=== PATIENT | female | born 1940 | race Caucasian/White ===

== ENCOUNTER → 2018-03-15 | Outpatient (CLI) | payer MEDICARE ==
[~2018-03-15] MED LIST: ASPI81TA15 PO; ATOR40TA69 PO; CALC-515 PO; CEPH250C37 PO; CHOL400T22 PO; HCTZ25 FT; LEVO25TA56 PO; LOR5/325 PO; LOVA20TA99 PO; METO25TA93 PO; MULT1TAB PO; OMEG-26 PO; TRAM-627 PO; VIT1CAPS39 PO
[2018-03-15 09:23] LABS: PLATELET COUNT, AUTOMATED 381 K/uL (150-450)
[2018-03-15 09:41] LABS: LDL CHOLESTEROL 73 mg/dl
--- NOTE | 2018-03-15 10:49 | RADIOLOGY IMAGING REPORT ---
FACILITY: [facility] PATIENT NAME: Anne Angelo : 1940 MR: [id number] V: [id number] EXAM DATE: ORDERING PHYSICIAN: JASMIN ESTEVEZ TECHNOLOGIST: Location: [facility] Patient: Anne Angelo : 1940 Visit/Account:[id number] Date of Sevice: 03/15/2018 EXAMINATION: Aorta ultrasound with duplex Doppler evaluation HISTORY: History of abdominal aortic aneurysm COMPARISON: June 29, 2017 FINDINGS: Suprarenal abdominal aorta: 2.7 x 2.6 cm AP and transverse dimensions Superior infrarenal abdominal aorta: 2.7 x 2.3 cm AP and transverse dimensions Mid infrarenal abdominal aorta: 3.1 x 3.4 cm AP and transverse dimensions The central lumen measures 2.1 x 2.5 cm with surrounding mural thrombus Inferior infrarenal abdominal aorta: 1.6 x 1.7 cm AP and transverse dimensions Proximal common iliac artery diameter: Left 5.6 mm; right six mm Aorta wall: Atherosclerotic changes seen throughout the abdominal aorta Aorta and proximal common iliac artery are patent by duplex Doppler ultrasound. IMPRESSION: Mid infrarenal abdominal aortic aneurysm measures 3.1 x 3.4 cm including the mural thrombus. Previou sly measured 3.5 x 3.3 cm. Report Dictated By: Anne García MD at 03/15/2018 10:27 AM Report E-Signed By: Anne García MD at 03/15/2018 10:44 AM WSN:[email or web address]
--- NOTE | 2018-03-16 10:42 | RADIOLOGY IMAGING REPORT ---
FACILITY: [facility] PATIENT NAME: ANNE CHEN : [id number] MR: [id number] V: [id number] EXAM DATE: ORDERING PHYSICIAN: JASMIN ESTEVEZ TECHNOLOGIST: Deavnte Newell PROCEDURE:US LEFT BREAST COMPARISON:None. INDICATIONS:PALPABLE LUMP APPROXIMATE 3 O'CLOCK POSITION LEFT BREAST. FINDINGS: The Left breast was imaged in the 1-4 o'clock position reveal no sonographic abnormality other than several minimally prominent ducts in the Left retroareolar region. Today's mammogram likewise revealed no abnormality therefore clinical follow-up recommend. DIAGNOSTIC CATEGORY 2--BENIGN FINDING. RECOMMENDATIONS: ROUTINE MAMMOGRAM AND CLINICAL EVALUATION. CLINICAL EVALUATION. IMPRESSION: BIRADS 2: Benign finding No mammographic or sonographic abnormality identified to account for patient's palpable findings in the Left breast therefore clinical follow-up recommended. Dictated by: Anne García M.D. on 03/15/2018 at 11:14 Transcribed by: LAY on 03/15/2018 at 13:08 Approved by: Anne García M.D. on 03/16/2018 at 10:40 [facility]
--- NOTE | 2018-03-16 10:42 | RADIOLOGY IMAGING REPORT ---
FACILITY: [facility] PATIENT NAME: ANNE CHEN : [id number] MR: [id number] V: [id number] EXAM DATE: ORDERING PHYSICIAN: JASMIN ESTEVEZ TECHNOLOGIST: Twyla Sommers PROCEDURE:BILATERAL DIAGNOSTIC DIGITAL MAMMOGRAM WITH CAD ASSISTED INTERPRETATION & 3D TOMOSYNTHESIS COMPARISON:Prior mammograms 04/10/13. INDICATIONS:LEFT BREAST LUMP UPPER OUTER QUADRANT FINDINGS: Small amount of fibroglandular tissue is seen throughout the breasts. The parenchymal pattern has remained stable allowing for difference in mammographic technique & patient positioning. There is no evidence of malignant appearing mass, malignant appearing calcifications or other secondary sign of malignancy in either breast. Today's Left breast Ultrasound likewise revealed no sonographic correlate therefore clinical follow-up recommended for patient's palpable findings DIAGNOSTIC CATEGORY 2--BENIGN FINDING. RECOMMENDATIONS: ROUTINE MAMMOGRAM AND CLINICAL EVALUATION. CLINICAL EVALUATION. IMPRESSION: BIRADS 2: Benign finding No mammographic or sonographic abnormality identified to account for patient's palpable findings in the Left breast therefore clinical follow-up recommended. Dictated by: Anne García M.D. on 03/15/2018 at 11:01 Transcribed by: LAY on 03/15/2018 at 11:54 Approved by: Anne García M.D. on 03/16/2018 at 10:40 [facility]
== END ==
LOC: MAMO 00:56
PROVIDERS: ATTEND Nurse Practitioner Family
DX: N64.4 Mastodynia (principal); N60.19 Diffuse cystic mastopathy of unspecified breast; I71.9 Aortic aneurysm of unspecified site, without rupture; I10 Essential (primary) hypertension; D51.0 Vitamin B12 deficiency anemia due to intrinsic factor deficiency; E55.9 Vitamin D deficiency, unspecified; E78.00 Pure hypercholesterolemia, unspecified; R53.81 Other malaise
CPT/HCPCS: 36415; 77062; 77066; 82040; 82247; 82306; 82310; 82374; 82435; 82465; 82565; 82607; 82947; 83718; 84075; 84132; 84155; 84295; 84443; 84450; 84460; 84478; 84520; 85025; 93978

== ENCOUNTER → 2018-08-01 | Outpatient (CLI) | payer MEDICARE ==
[2018-08-01 13:57] LABS: LDL CHOLESTEROL 76 mg/dl
== END ==
LOC: LAB 13:15
PROVIDERS: ATTEND Nurse Practitioner Family
DX: E83.52 Hypercalcemia (principal); E78.00 Pure hypercholesterolemia, unspecified; E03.9 Hypothyroidism, unspecified
CPT/HCPCS: 36415; 82040; 82247; 82306; 82310; 82374; 82435; 82465; 82565; 82947; 83718; 84075; 84132; 84155; 84295; 84443; 84450; 84460; 84478; 84520

== ENCOUNTER → 2018-09-13 | Outpatient (CLI) | payer MEDICARE ==
--- NOTE | 2018-09-13 11:18 | RADIOLOGY IMAGING REPORT ---
FACILITY: [facility] [place] PATIENT NAME: Anne Angelo : 1940 MR: [id number] V: [id number] EXAM DATE: ORDERING PHYSICIAN: JASMIN ESTEVEZ TECHNOLOGIST: Location: [facility] Patient: Anne Angelo : 1940 Visit/Account:[id number] Date of Sevice: 09/13/2018 DEXA Scan Clinical history: Screening. Comparison: September 01, 2010. FOREARM: The bone mineral density (BMD) measured in the ULTRADISTAL right forearm, where trabecular bone predo minates, correlates with a Z-score of -0.4 and a T-score of -3.1 which is osteoporotic as defined by the World Health Organization. The corresponding risk of fracture in the distal forearm is significa ntly increased compared with a young adult reference population. The bone mineral density (BMD) composite wrist with a T-score of -1.4 which is -4.1 as defined by the World Health Organization. The corresponding risk of fracture in the midshaft of the forearm is oste oporotic compared with a young adult reference population. . HIP: Bone mineral density (BMD) measured in the left total hip region correlates with a Z-score of -0.4 an d a T-score of -2.7 . The T score of the femoral neck is -2.3. The lower of the two T-scores is o steoporotic as defined by the World Health Organization. The corresponding risk of fracture in the h ip is significantly increased compared with a young adult reference population. This value has decr eased by 16.2 % since the prior study. More than 5% change is considered significant. Bone mineral density (BMD) measured in the left Femoral Neck region measures 0.71 g/cm?. IMPRESSION: Right Forearm: Osteoporotic. Left Hip osteoporotic FRAX? WHO Fracture Risk Assessment Tool link: <http://www.shef.ac.uk/FRAX/tool.jsp?locationValue=9> PLEASE NOTE: 1) The World Health Organization defines low BMD as follows: T-score Normal > -1 Osteopenia < -1 and > -2.5 Osteoporosis < -2.5 without fractures Established osteoporosis < -2.5 with fractures 2) In general, you may wish to consider: Diagnosis Treatment Follow-up DEXA Normal BMD Prevention 2-3 years Osteopenia Prevention/therapy 1-2 years Osteoporosis Therapy Yearly 3) Fracture risk estimated from the T-score is more accurate for vertebral fractures (often spontane ous) than for hip fractures. Report Dictated By: Torey Tran MD at 09/13/2018 11:04 AM Report E-Signed By: Torey Tran MD at 09/13/2018 11:13 AM WSN:[email or web address]
--- NOTE | 2018-09-13 14:04 | RADIOLOGY IMAGING REPORT ---
FACILITY: [facility] [place] PATIENT NAME: Anne Angelo : 1940 MR: [id number] V: [id number] EXAM DATE: ORDERING PHYSICIAN: JASMIN ESTEVEZ TECHNOLOGIST: Location: [facility] [place] Patient: Anne Angelo : 1940 Visit/Account:[id number] Date of Sevice: 09/13/2018 AORTA HISTORY: Follow-up aortic aneurysm Comparison Aortic ultrasound dated 03/15/[address] scan dated 08/31/2016 FINDINGS: Suprarenal aorta measurements 2.7 x 2.5 centimeters. Superior infrarenal aorta measures 2.6 x 2.6 centimeters. Mid infrarenal aorta measures 3.0 x 2.8 centimeters. Inferior infrarenal aorta measures 2.5 x 2.5 centimeters. On the prior study this was listed as 1.7 x 1.6. However, in reviewing the images I believe the difference in measurements is due to the fact it measured in slightly different spots. Right and left common iliac arteries measure 0.8 and 0.7 centimeters respectively. Aorta wall: Atherosclerotic plaque is visible in the aortic wall. Small amount of thrombus is seen a long the anterior wall. IVC is patent IMPRESSION: Fusiform infrarenal abdominal aortic aneurysm beginning 1.2 cm below the most inferior renal artery m easures 3 cm widest dimension and is stable. There is atherosclerosis in the aorta and iliac vessels . Report Dictated By: Torey Tran MD at 09/13/2018 11:55 AM Report E-Signed By: Torey Tran MD at 09/13/2018 1:59 PM WSN:[email or web address]
== END ==
LOC: US 01:02
PROVIDERS: ATTEND Nurse Practitioner Family
DX: I71.4 Abdominal aortic aneurysm, without rupture (principal); M81.0 Age-related osteoporosis without current pathological fracture
CPT/HCPCS: 77080; 93979

== ENCOUNTER 2019-03-03 11:21 | Emergency (ER) | payer MEDICARE ==
--- NOTE | 2019-03-03 11:27 | ER Report ---
History and Physical Time Seen By MD: 11:27 HPI/ROS CHIEF COMPLAINT: Blood in stools HISTORY OF PRESENT ILLNESS: This is an 78-year-old female presents to the emergency room for blood in stool. Patient states that at the end of December, she was in [place], have one episode of atrial fibrillation, was rushed to the hospital chemically converted into a sinus rhythm, no known history of a-fib. Was not placed on anticoagulation at that time. The live half the time in [facility] and half time in [place]. Upon returning to [place] last month after a-fib episode, she had an upper endoscopy for one or 2 episodes of bright red blood in her stool, no ulcerations identified, attributed the brief episodes of bright red stools to large quantities of ibuprofen being consumed on a daily basis for roughly a month. She also had femoral angioplasty this past month in [place], following the procedure she was placed on Plavix and aspirin. Everythin rosalba went well, no complications then returned [place] 2 days ago for the summer, at which time she began to show signs of dark red to black stools, she also notes that she's been straining more to have a bowel movement last couple of days. The became concerned, she also had some nausea today she thinks this is secondary to being nervous about the blood in the stool. She denies fevers or chills. No vomiting. No chest pain or shortness of breath. No abdominal pain however she states she does have a known abdominal aneurysm, which has remained unchanged. She was also concerned about her elevated blood pressure at home, she does however think this is stress related, she denies any other symptomology, no headaches or neurological changes. REVIEW OF SYSTEMS: Constitutional: No fever, no chills. Eyes: No discharge. ENT: No sore throat. Cardiovascular: No chest pain, no palpitations. Respiratory: No cough, no shortness of breath. Gastrointestinal: As above. Genitourinary: No hematuria. Musculoskeletal: No back pain. Skin: No rashes. Neurological: No headache. Allergies: Coded Allergies: No Known Drug Allergies (Unverified , 05/11/13) Home Meds Active Scripts Ferrous Sulfate (FERROUS SULFATE) 324 Mg Tablet., 324 MG PO QDAY for 14 Days, #14 TAB Prov:JT LEES DOUBLE ENDING MACHINE OPERATOR-BC 03/03/19 Reported Medications Pantoprazole Sodium (PANTOPRAZOLE SODIUM) 40 Mg Tablet.dr, 40 MG PO QDAY, TAB.SR 03/03/19 Amlodipine Besylate (AMLODIPINE BESYLATE) 5 Mg Tablet, 1 TAB PO QDAY, TAB 03/03/19 Vit C/Chase Ac/Lut/Copper/Znox (PRESERVISION LUTEIN SOFTGEL) 1 Each Capsule, 1 EACH PO BID, CAPSULE 10/12/13 Metoprolol Tartrate (METOPROLOL TARTRATE) 25 Mg Tablet, 0.5 TAB PO BID TAKE ONE TABLET BY MOUTH TWICE A DAY 10/12/13 Atorvastatin Calcium (ATORVASTATIN CALCIUM) 40 Mg Tablet, 1 TAB PO QDAY PRN for QHS, TAB TAKE ONE TABLET BY MOUTH ONCE A DAY AT BED TIME 10/12/13 Aspirin (ASPIRIN) 81 Mg Tablet.dr, 81 MG PO 06/28/12 Discontinued Reported Medications Calcium Carbonate (TUMS) 200 Mg Tab.chew, 200 MG PO BID, TAB.CHEW 10/12/13 Lovastatin (Lovastatin) 20 Mg Tablet, 20 MG PO 06/28/12 Multivit&Min/Iron Fm/Folic Acd (MONOCAPS TABLET) 1 Each Tablet, 1 EACH PO 06/28/12 [place]-3/Dha/Epa/Fish Oil (FISH OIL 1,000 MG SOFTGEL) 1 Each Capsule, 1 EACH PO 06/28/12 Levothyroxine Sodium (Levothyroxine Sodium) 25 Mcg Tablet, 25 MCG PO 06/28/12 Discontinued Scripts Cephalexin (KEFLEX) 250 Mg Capsule, 250 MG PO Q6H, #40 CAP TAKE ONE CAPSULE BY MOUTH EVERY SIX HOURS Prov:INO VALLEJO MD 10/12/13 Past Medical/Surgical History The patient has a past medical and surgical history of DVT, brief episode of atrial fibrillation, hypertension, blood in stools, C. difficile, arthritis, c hronic back pain, macular degeneration, hysterectomy, left rotator cuff repair. Reviewed Nurses Notes: Yes Hx Smoking: Yes Hx Substance Use Disorder: No Hx Alcohol Use: Yes (RARE) Constitutional Vital Sign - Last 24 Hours 03/03/19 03/03/19 03/03/19 03/03/19 11:25 11:26 11:30 11:51 Temp 98.3 Pulse 62 58 Resp 20 33 B/P (MAP) 182/82 182/82 (115) 178/79 (112) Pulse Ox 92 89 O2 Delivery Room Air 03/03/19 03/03/19 03/03/19 03/03/19 12:00 12:21 12:30 12:35 Pulse 55 50 Resp 12 11 B/P (MAP) 191/78 (115) 178/76 (110) Pulse Ox 92 03/03/19 03/03/19 03/03/19 03/03/19 13:11 13:30 13:35 13:40 Pulse 50 51 B/P (MAP) 165/69 (101) 172/80 (110) Pulse Ox 88 90 03/03/19 14:00 B/P (MAP) 156/73 (100) Physical Exam General Appearance: The patient is alert, has no immediate need for airway protection and no signs of toxicity. Eyes: Pupils equal and round no pallor or injection. ENT, Mouth: Mucous membranes are moist. Respiratory: There are no retractions, lungs are clear to auscultation. Cardiovascular: Regular rate and rhythm no murmurs, clicks or rubs. Gastrointestinal: Abdomen is soft and non tender, no masses, bowel sounds normal. No abdominal bruits. No pulsations. Neurological: Alert and oriented 4. Moving all activity. Following all commands. No focal neuro deficits. Skin: Warm and dry, no rashes. Musculoskeletal: Neck is supple non tender. Extremities are nontender, nonswollen and have full range of motion. DIFFERENTIAL DIAGNOSIS: After history and physical exam differential diagnosis was considered for abdominal aneurysm rupture, diverticulitis, diverticulosis, upper GI bleed, gastric ulcer. Medical Decision Making Data Points Result Diagram: 03/03/19 1205 03/03/19 1205 Laboratory Hematology Test 03/03/19 12:05 03/03/19 12:24 Red Blood Count 3.51 M/uL (4.17-5.56) Mean Corpuscular Volume 90.6 fL (80.0-96.0) Mean Corpuscular Hemoglobin 30.8 pg (26.0-33.0) Mean Corpuscular Hemoglobin Concent 34.0 g/dL (32.0-36.0) Red Cell Distribution Width 14.4 % (11.5-14.5) Mean Platelet Volume 6.1 fL (7.2-11.1) Neutrophils (%) (Auto) 72.2 % (39.4-72.5) Lymphocytes (%) (Auto) 16.6 % (17.6-49.6) Monocytes (%) (Auto) 8.6 % (4.1-12.4) Eosinophils (%) (Auto) 1.2 % (0.4-6.7) Basophils (%) (Auto) 1.4 % (0.3-1.4) Nucleated RBC Relative Count (auto) 0.0 /100WBC Neutrophils # (Auto) 3.9 K/uL (2.0-7.4) Lymphocytes # (Auto) 0.9 K/uL (1.3-3.6) Monocytes # (Auto) 0.5 K/uL (0.3-1.0) Eosinophils # (Auto) 0.1 K/uL (0.0-0.5) Basophils # (Auto) 0.1 K/uL (0.0-0.1) Nucleated RBC Absolute Count (auto) 0.00 K/uL Prothrombin Time 12.4 seconds (12.0-14.4) Prothromb Time International Ratio 0.93 Activated Partial Thromboplast Time 25 seconds (23-35) Sodium Level 141 mmol/L (137-145) Potassium Level 3.7 mmol/L (3.5-5.0) Chloride Level 108 mmol/L (98-107) Carbon Dioxide Level 24 mmol/L (22-31) Blood Urea Nitrogen 12 mg/dl (7-18) Creatinine 0.70 mg/dl (0.52-1.04) Glomerular Filtration Rate Calc > 60.0 Random Glucose 92 mg/dl (75-110) Calcium Level 9.5 mg/dl (8.4-10.2) Total Bilirubin 0.5 mg/dl (0.2-1.3) Aspartate Amino Transf (AST/SGOT) 24 U/L (0-35) Alanine Aminotransferase (ALT/SGPT) 24 U/L (0-56) Alkaline Phosphatase 79 U/L (0-126) Total Protein 7.3 g/dl (6.3-8.2) Albumin 4.2 g/dl (3.5-5.0) Stool Occult Blood (IFOB) Positive (NEGATIVE) Chemistry Test 03/03/19 12:05 03/03/19 12:24 White Blood Count 5.4 k/uL (4.5-11.0) Red Blood Count 3.51 M/uL (4.17-5.56) Hemoglobin 10.8 g/dL (12.0-16.0) Hematocrit 31.8 % (34.0-47.0) Mean Corpuscular Volume 90.6 fL (80.0-96.0) Mean Corpuscular Hemoglobin 30.8 pg (26.0-33.0) Mean Corpuscular Hemoglobin Concent 34.0 g/dL (32.0-36.0) Red Cell Distribution Width 14.4 % (11.5-14.5) Platelet Count 429 K/uL (150-450) Mean Platelet Volume 6.1 fL (7.2-11.1) Neutrophils (%) (Auto) 72.2 % (39.4-72.5) Lymphocytes (%) (Auto) 16.6 % (17.6-49.6) Monocytes (%) (Auto) 8.6 % (4.1-12.4) Eosinophils (%) (Auto) 1.2 % (0.4-6.7) Basophils (%) (Auto) 1.4 % (0.3-1.4) Nucleated RBC Relative Count (auto) 0.0 /100WBC Neutrophils # (Auto) 3.9 K/uL (2.0-7.4) Lymphocytes # (Auto) 0.9 K/uL (1.3-3.6) Monocytes # (Auto) 0.5 K/uL (0.3-1.0) Eosinophils # (Auto) 0.1 K/uL (0.0-0.5) Basophils # (Auto) 0.1 K/uL (0.0-0.1) Nucleated RBC Absolute Count (auto) 0.00 K/uL Prothrombin Time 12.4 seconds (12.0-14.4) Prothromb Time International Ratio 0.93 Activated Partial Thromboplast Time 25 seconds (23-35) Glomerular Filtration Rate Calc > 60.0 Calcium Level 9.5 mg/dl (8.4-10.2) Total Bilirubin 0.5 mg/dl (0.2-1.3) Aspartate Amino Transf (AST/SGOT) 24 U/L (0-35) Alanine Aminotransferase (ALT/SGPT) 24 U/L (0-56) Alkaline Phosphatase 79 U/L (0-126) Total Protein 7.3 g/dl (6.3-8.2) Albumin 4.2 g/dl (3.5-5.0) Stool Occult Blood (IFOB) Positive (NEGATIVE) Coagulation Test 03/03/19 12:05 Prothrombin Time 12.4 seconds Prothromb Time International Ratio 0.93 Activated Partial Thromboplast Time 25 seconds EKG/Imaging EKG Interpretation 12 lead EKG: Time of EKG 1155. Rhythm: Sinus bradycardia, ventricular rate 54 bpm. [place]: normal QRS: normal ST segments: No ST depression or elevation identified. No other EKGs for comparison. Imaging Location: [facility] Patient: Anne Angelo : 1940 Visit/Account:[id number] Date of Sevice: 03/03/2019 Computed tomograpy abdomen and pelvis with IV contrast Indication: Blood in stool. Atrial fibrillation. Comparison: 08/31/2016. Technique: Transaxial computed tomography images were obtained through the abdomen and pelvis following the injection of nonionic iodinated intravenous contrast. Reformatted coronal and sagittal images were also obtained. One of the following dose optimization techniques was utilized in the performance of this exam: Automated exposure control; adjustment of the mA and/or kV according to the patient's size; or use of an iterative reconstru ction technique. Specific details can be referenced in the facility's radiology CT exam operational policy. Contrast: 75 ml of Isovue-370 IV contrast. Findings: Lower lung hansen: Changes of interstitial lung disease and honeycombing are present within the lung bases. This appeared similarly on the prior exam. Small, incompletely evaluated nodular densities are seen within the right middle lobe anteriorly on the most upper images of this exam. There is metal streak artifact from interval lumbar fusion procedure with instrumentation which extends from L1 to S1 with bilateral iliac fixation. Liver: No focal parenchymal abnormality of the liver. Biliary: Gallbladder is partially contracted. Common duct appears mildly dilated within the pancreas and tapers distally near the ampulla. It measures 7 mm in greatest dimension. Correlate with liver function tests. No intrahepatic biliary dilatation. Pancreas: Normal appearance. Spleen: Normal appearance. Adrenal glands: Unremarkable. Kidneys / retroperitoneum: Large exophytic renal cysts are again seen. Smaller cortically based cysts are seen. No stones or hydronephrosis are identified. Bowel / peritoneum / mesenteries: No colonic wall thickening or pericolonic inflammation is identified. Numerous colonic diverticula are seen without evidence of diverticulitis. No evidence of small bowel dilatation to suggest obstruction or ileus. Lymph node assessment: Postoperative changes are seen within the left inguinal region. Mildly prominent nodes are suggested in this region. Correlate clinically. No enlarged pelvic, mesenteric or retroperitoneal nodes are seen. Pelvic structures: There has been prior hysterectomy. The bladder is very distended with urine. Correlate clinically. Vessels: Diffuse, extensive atherosclerotic calcifications seen throughout the abdominal aorta and its branch vessels. These extend into the iliac and femoral vessels. There is an infrarenal abdominal aortic aneurysm. Greatest transaxial dimensions measure 3.6 x 3.6 cm. On the prior, this measured 3.4 x 3.5 cm. Musculoskeletal / Body wall: Postoperative changes as reported above. No acute compression fractures seen. There is multilevel degenerative disc disease present most pronounced at T12-L1 and L2-L3. Anterior interbody bone graft is in place at L5-S1. There is a slight dextrocurvature centered in the mid lumbar spine. IMPRESSION: 1. No acute inflammatory process identified within the abdomen or the pelvis. No evidence of focal colitis or diverticulitis. 2. Marked urinary distention of the bladder. Clinical correlation is necessary. 3. Extensive/diffuse atherosclerosis with aneurysmal dilatation of the infra renal abdominal aorta. Greatest aneurysm dimensions measure slightly larger than the prior exam. Measurements as reported above. 4. Peripheral honeycombing and interstitial lung disease in the lung bases. Indeterminant and incompletely evaluated nodular densities seen within the right middle lobe on the most upper images. If indicated, consider nonemergent dedicated chest CT. 5. Mildly prominent common bile duct within the head of the pancreas which tapers distally. Correlate with liver function tests. 6. Large exophytic renal cysts. Report Dictated By: Devante Ornelas at 03/03/2019 1:26 PMReport E-Signed By: Devante Ornelas at 03/03/2019 1:42 PM WSN:[id number] Hitting on PATIENT NAME: Anne Angelo : 1940 MR: [id number] V: [id number] EXAM DATE: ORDERING PHYSICIAN: JT LEES TECHNOLOGIST: Location: [facility] Patient: Anne Angelo : 1940 Visit/Account:[id number] Date of Sevice: 03/03/2019 Examination: CHEST PA LAT Comparison: None. History: Blood in stool. Atrial fibrillation. Findings: Cardiac and hilar contour size is normal. Aortic atherosclerosis. Pulmonary hyperexpansion. Interstitial thickening with peripheral reticular markings most notably in the lower lungs is suggestive of fibrosis. No consolidation or nodule is otherwise identified. No pneumothorax, edema, or effusion. Lumbar fusion. No acute osseous normality. IMPRESSION: Chronic lung disease with no findings of acute cardiopulmonary disease. Report Dictated By: Daniel Stack MD at 03/03/2019 1:06 PM Report E-Signed By: Daniel Stack MD at 03/03/2019 1:08 PM WSN:[id number] ED Course/Re-evaluation Clinical Indication for ER IV: IV Access ED Course The patient was admitted to room. A history and physical obtained. Deyanira diagnoses were considered. An IV was started. A CBC, CMP, type and screen were obtained. Patient was given 80 mg loading dose of Protonix. Rectal exam did reveal dark stool on gloved finger, there is also small amount of stool burden in the rectal vault which was very firm. CBC showing RBCs 3.51, H&H 10.8 and 31.8, chemistry unremarkable, INR 0.93, positive Hemoccult stool. No acute findings on two-view chest x-ray. EKG showing sinus bradycardia. Chest x-ray showing no acute cardiopulmonary process.CT of the and pelvis showing no acute inflammatory process, no colitis or diverticulitis, no significant changes in the known aneurysm, similar nodular densities in the lungs. I did review the results with the patient and her . I also spoke with Dr. Hamilton the surgeon on-call, as the patient is not actively bleeding, stable vital signs, H&H stable, he recommended a follow-up this next week with the general surgeons for colonoscopy, patient was also encouraged to start ferrous sulfate with stool softeners. The patient, her and I discussed a low threshold for returning to the ER for reevaluation should she develop recurrent episodes of bleeding at which time she she will likely be admitted for observation. They will both agreeable with the plan of care, patient was pleased with the plan to discharge home. And no other questions or concerns at this time. Also noted she will continue with her aspirin and Plavix due to the recent angioplasty. 03/03/2019 12:26:04 pm Nonthrombosed hemorrhoids around the anus, overdose black stool around the rectum, on digital exam there is a firm stool in the rectal vault, black stool noted on gloved finger, specimen collected and sent to lab. 03/03/2019 2:10:03 pm I did speak with Dr. Hamilton the general surgeon quarter section ironer regarding the case, the patient is not actively bleeding at this time, he did recommend starting the patient on ferrous sulfate and a stool softener and follow up with Dr. Machado or Dr. Simmons for a colonoscopy this next week. Decision to Disposition Date: March 03, 2019 Decision to Disposition Time: 14:26 Depart Departure Latest Vital Signs Vital Signs Date Time Temp Pulse Resp B/P (MAP) Pulse Ox O2 Delivery O2 Flow Rate FiO2 03/03/19 14:00 156/73 (100) 03/03/19 13:40 51 90 03/03/19 12:35 11 03/03/19 11:25 98.3 Room Air Impression: Primary Impression: Upper GI bleed Condition: Improved Disposition: HOME OR SELF-CARE Referrals: SALENA SIMMONS 5 Days New Scripts Ferrous Sulfate (FERROUS SULFATE) 324 Mg Tablet. 324 MG PO QDAY for 14 Days, #14 TAB Prov: JT LEES DOUBLE ENDING MACHINE OPERATOR-BC 03/03/19 Patient Instructions: Colonoscopy (GEN), Gastrointestinal Bleeding (ED) Additional Instructions: Please contact Dr. Simmons first thing Tuesday morning to schedule an outpatient colonoscopy. As you were not actively bleeding at this time, blood pressures are ok and stable blood work we can send you home. Continue taking your current medications. In addition to the stool softeners you are taking, please try 1/2 cap of Miralax to help with stooling. You can also try some prune juice, this will help with stool transit. Please increase the amount of water you are taking this will help with stooling as well, this will be important as I am starting you on iron tablets, this can increase the chance for constipation. As we discussed, there is a low threshold for returning to the ED, for increased bleeding or anything else you find concerning. Get plenty of rest. Return to the ED for any other concerns or worsening symptoms. JT LEES DOUBLE ENDING MACHINE OPERATOR-BC March 03, 2019 11:27
[2019-03-03] MEDS ORDERED: AMLO-125 PO (11:39)
[2019-03-03] MEDS ORDERED: PANT40TA65 PO (11:39)
[2019-03-03 12:17] LABS: PLATELET COUNT, AUTOMATED 429 K/uL (150-450)
[2019-03-03] MEDS ORDERED: PANTOPRAZOLE SOD(*)40 MG VIAL 80 MG in NS(*) 0.9% 100 ML BAG 100 ML IVPB ONE (12:20)
--- NOTE | 2019-03-03 12:21 | EKG ---
FACILITY: [facility] [place] PATIENT NAME: MARIANNE CHEN : [id number] MR: [id number] V: [id number] EXAM DATE: ORDERING PHYSICIAN: JT LEES TECHNOLOGIST: TANI Test Reason : ABD PAIN Blood Pressure : / mmHG Vent. Rate : 054 BPM Atrial Rate : 054 BPM P-R Int : 118 ms QRS Dur : 084 ms QT Int : 446 ms P-R-T Axes : 065 026 047 degrees QTc Int : 422 ms Sinus bradycardia Otherwise normal ECG No previous ECGs available Confirmed by INO JOY ([id number]) on 03/03/2019 1:09:33 PM Referred By: FLORENCIA Confirmed By:INO JOY
[2019-03-03 12:23] LABS: INR 0.93
[2019-03-03] MEDS ORDERED: IOPAMIDOL 76% 150 ML INFUS BTL 150 ML ONE (12:47)
--- NOTE | 2019-03-03 13:13 | RADIOLOGY IMAGING REPORT ---
[place] [facility] [place] NAME: Anne Angelo : 1940 MR: [id number] V: [id number] EXAM DATE: ORDERING PHYSICIAN: JT LEES TECHNOLOGIST: Location: [facility] [place] Patient: Anne Angelo : 1940 Visit/Account:[id number] Date of Sevice: 03/03/2019 Examination: CHEST PA LAT Comparison: None. History: Blood in stool. Atrial fibrillation. Findings: Cardiac and hilar contour size is normal. Aortic atherosclerosis. Pulmonary hyperexpansion. Interstitial thickening with peripheral reticular markings most notably in the lower lungs is suggestive of fibrosis. No consolidation or nodule is otherwise identified. No pne umothorax, edema, or effusion. Lumbar fusion. No acute osseous normality. IMPRESSION: Chronic lung disease with no findings of acute cardiopulmonary disease. Report Dictated By: Daniel Stack MD at 03/03/2019 1:06 PM Report E-Signed By: Daniel Stack MD at 03/03/2019 1:08 PM WSN:[id number]
--- NOTE | 2019-03-03 13:46 | RADIOLOGY IMAGING REPORT ---
FACILITY: [facility] PATIENT NAME: Anne Angelo : 1940 MR: [id number] V: [id number] EXAM DATE: ORDERING PHYSICIAN: JT LEES TECHNOLOGIST: Location: [facility] Patient: Anne Angelo : 1940 Visit/Account:[id number] Date of Sevice: 03/03/2019 Computed tomograpy abdomen and pelvis with IV contrast Indication: Blood in stool. Atrial fibrillation. Comparison: 08/31/2016. Technique: Transaxial computed tomography images were obtained through the abdomen and pelvis follo wing the injection of nonionic iodinated intravenous contrast. Reformatted coronal and sagittal image s were also obtained. One of the following dose optimization techniques was utilized in the performance of this exam: Autom ated exposure control; adjustment of the mA and/or kV according to the patient's size; or use of an i terative reconstruction technique. Specific details can be referenced in the facility's radiology C T exam operational policy. Contrast: 75 ml of Isovue-370 IV contrast. Findings: Lower lung hansen: Changes of interstitial lung disease and honeycombing are present within the lung bases. This appeared similarly on the prior exam. Small, incompletely evaluated nodular densities are seen within the right middle lobe anteriorly on the most upper images of this exam. There is metal streak artifact from interval lumbar fusion procedure with instrumentation which exten ds from L1 to S1 with bilateral iliac fixation. Liver: No focal parenchymal abnormality of the liver. Biliary: Gallbladder is partially contracted. Common duct appears mildly dilated within the pancreas and tapers distally near the ampulla. It measures 7 mm in greatest dimension. Correlate with liver fu nction tests. No intrahepatic biliary dilatation. Pancreas: Normal appearance. Spleen: Normal appearance. Adrenal glands: Unremarkable. Kidneys / retroperitoneum: Large exophytic renal cysts are again seen. Smaller cortically based cysts are seen. No stones or hydronephrosis are identified. Bowel / peritoneum / mesenteries: No colonic wall thickening or pericolonic inflammation is identifie d. Numerous colonic diverticula are seen without evidence of diverticulitis. No evidence of small bow el dilatation to suggest obstruction or ileus. Lymph node assessment: Postoperative changes are seen within the left inguinal region. Mildly promine nt nodes are suggested in this region. Correlate clinically. No enlarged pelvic, mesenteric or retrop eritoneal nodes are seen. Pelvic structures: There has been prior hysterectomy. The bladder is very distended with urine. Co rrelate clinically. Vessels: Diffuse, extensive atherosclerotic calcifications seen throughout the abdominal aorta and it s branch vessels. These extend into the iliac and femoral vessels. There is an infrarenal abdominal a ortic aneurysm. Greatest transaxial dimensions measure 3.6 x 3.6 cm. On the prior, this measured 3.4 x 3.5 cm. Musculoskeletal / Body wall: Postoperative changes as reported above. No acute compression fractures seen. There is multilevel degenerative disc disease present most pronounced at T12-L1 and L2-L3. Ante rior interbody bone graft is in place at L5-S1. There is a slight dextrocurvature centered in the mid lumbar spine. IMPRESSION: 1. No acute inflammatory process identified within the abdomen or the pelvis. No evidence of focal co litis or diverticulitis. 2. Marked urinary distention of the bladder. Clinical correlation is necessary. 3. Extensive/diffuse atherosclerosis with aneurysmal dilatation of the infrarenal abdominal aorta. Gr eatest aneurysm dimensions measure slightly larger than the prior exam. Measurements as reported abov e. 4. Peripheral honeycombing and interstitial lung disease in the lung bases. Indeterminant and incompl etely evaluated nodular densities seen within the right middle lobe on the most upper images. If rosario cated, consider nonemergent dedicated chest CT. 5. Mildly prominent common bile duct within the head of the pancreas which tapers distally. Correlate with liver function tests. 6. Large exophytic renal cysts. Report Dictated By: Devante Ornelas at 03/03/2019 1:26 PMReport E-Signed By: Devante Ornelas at 2018 1:42 PM WSN:[id number]
[2019-03-03 14:00] VITALS: BP 156/73
[2019-03-03] MEDS ORDERED: FERR324T16 PO (14:24)
== END 2019-03-03 14:39 | disposition home or self-care (01) ==
LOC: ER 11:26
DX: K92.1 Melena (principal); R00.1 Bradycardia, unspecified
CPT/HCPCS: 71046; 74177; 82274; 85025; 85610; 85730; 86850; 86900; 86901; 93005; 96374; 99284; C9113; J7050; Q9967; 82040; 82247; 82310; 82374; 82435; 82565; 82947; 84075; 84132; 84155; 84295; 84450; 84460; 84520

== ENCOUNTER 2019-03-08 00:55 | Day surgery (SDC) | payer MEDICARE ==
[~2019-03-08] VITALS: Ht 158.8 cm; Wt 55.3 kg
[~2019-03-08 00:55] MED LIST changes: +AMLO-125 PO; +CLOP75TA43 PO; +FERR324T16 PO; +LEVO75TA73 PO; +PANT40TA65 PO
[2019-03-08] MEDS ORDERED: PROPOFOL EMUL(*) 10MG/ML 20 ML 20 ML ONE (07:18)
[2019-03-08] MEDS ORDERED: MIDAZOLAM 2 MG/2 ML VIAL IVP PRN (10:30)
[2019-03-08] MEDS ORDERED: LIDOCAINE/SOD BICARB 8.4% SYR ID ONE (10:30)
[2019-03-08] MEDS ORDERED: NORMOSOL R SOLN(*) 1000 ML BAG 1,000 ML IV PRN (10:30)
[2019-03-08 12:23] VITALS: BP 129/71
--- NOTE | 2019-03-08 12:31 | Short(Outpt) Discharge Summary ---
Discharge Summary Reason for Hosp/Final Diag: (1) Upper GI bleed Status: Acute Hospital Course & Plan: pt presented for egd. she tolerated the procedure will. will check hb. she will be discharged home when criteria met. Departure Discharge to: Home Discharge Instructions Home Meds Active Scripts Ferrous Sulfate (FERROUS SULFATE) 324 Mg Tablet.dr, 324 MG PO QDAY for 14 Days, #14 TAB Prov:JT LEES [employer]INFORCING [employer] LAYER-BC 03/03/19 Reported Medications Levothyroxine Sodium (LEVOTHYROXINE SODIUM) 75 Mcg Tablet, 75 MCG PO QDAY, TAB 03/07/19 Clopidogrel Bisulfate (PLAVIX) 75 Mg Tablet, 1 TAB PO QDAY, TAB 03/07/19 Pantoprazole Sodium (PANTOPRAZOLE SODIUM) 40 Mg Tablet.dr, 40 MG PO QDAY, TAB.SR 03/03/19 Amlodipine Besylate (AMLODIPINE BESYLATE) 5 Mg Tablet, 1 TAB PO QDAY, TAB 03/03/19 Vit C/Chase Ac/Lut/Copper/Znox (PRESERVISION LUTEIN SOFTGEL) 1 Each Capsule, 1 EACH PO BID, CAPSULE 10/12/13 Metoprolol Tartrate (METOPROLOL TARTRATE) 25 Mg Tablet, 1 TAB PO QDAY TAKE ONE TABLET BY MOUTH TWICE A DAY 10/12/13 Atorvastatin Calcium (ATORVASTATIN CALCIUM) 40 Mg Tablet, 1 TAB PO QDAY PRN for QHS, TAB TAKE ONE TABLET BY MOUTH ONCE A DAY AT BED TIME 10/12/13 Aspirin (ASPIRIN) 81 Mg Tablet.dr, 81 MG PO 06/28/12 Discontinued Reported Medications Calcium Carbonate (TUMS) 200 Mg Tab.chew, 200 MG PO BID, TAB.CHEW 10/12/13 Lovastatin (Lovastatin) 20 Mg Tablet, 20 MG PO 06/28/12 Multivit&Min/Iron Fm/Folic Acd (MONOCAPS TABLET) 1 Each Tablet, 1 EACH PO 06/28/12 Renovo-3/Dha/Epa/Fish Oil (FISH OIL 1,000 MG SOFTGEL) 1 Each Capsule, 1 EACH PO 06/28/12 Levothyroxine Sodium (Levothyroxine Sodium) 25 Mcg Tablet, 25 MCG PO 06/28/12 Discontinued Scripts Cephalexin (KEFLEX) 250 Mg Capsule, 250 MG PO Q6H, #40 CAP TAKE ONE CAPSULE BY MOUTH EVERY SIX HOURS Prov:INO VALLEJO MD 10/12/13 Diet: Regular Activity: As Tolerated SALENA MUÑOZ March 08, 2019 12:31
--- NOTE | 2019-03-08 12:40 | NUR ---
1223 PT ARRIVED TO SD VIA CART IN L LAT POSITION, SBAR FROM Augusto VIDAL RN AND DR. ALDRIDGE VSS, MARYLOU AT BEDSIDE
[2019-03-08 13:00] VITALS: BP 145/71
[2019-03-08 13:01] VITALS: BP 144/88
--- NOTE | 2019-03-08 13:49 | NUR ---
1240 DR. MUÑOZ AT BEDSIDE, HG ORDERED, PT TOLERATING JELLO AND APPLE JUICE, D/C FROM IV TUBING 500ML UP 1250 LAB AT BEDSIDE 1300 ORTHOSTATICS DONE, STABLE, PT ALLOWED TO DRESS 1305 PT TOLERATING COFFEE, AWAITING RESULTS 1320 DR. MUÑOZ AT BEDSIDE TO DISCUSS RESULTS AND PLAN, PT UP TO RESTROOM, VOIDED WITHOUT DIFFICULTY 1330 REASSESSED, IV OUT, D/C INSTRUCTIONS COVERED, ALL QUESTIONS ANSWERED 1340 PT OUT TO CAR ON FOOT, STEADY, DECLINES WC, ALL BELONGINGS WITH PT, PT'S BROUGHT CAR AROUND TO ADMITTING ENTRANCE, SELF TRANSFERRED TO VEHICLE WITHOUT INCIDENT.
== END 2019-03-08 13:40 | disposition home or self-care (01) ==
LOC: OR 00:55
PROVIDERS: ATTEND Surgery
DX: K22.2 Esophageal obstruction (principal); K44.9 Diaphragmatic hernia without obstruction or gangrene; K29.70 Gastritis, unspecified, without bleeding
CPT/HCPCS: 36415; 43235; 85018; J2704

== ENCOUNTER → 2019-03-29 | Outpatient (CLI) | payer MEDICARE | LOC: LAB 12:07 | PROVIDERS: ATTEND Surgery | DX: K92.2 Gastrointestinal hemorrhage, unspecified (principal) | CPT/HCPCS: 36415; 85018 ==

== ENCOUNTER → 2019-05-02 | Outpatient (CLI) | payer MEDICARE ==
[~2019-05-02] MED LIST changes: +IOPAMIDOL 76% 100 ML INFUS BTL 100 ML ONE; +NS(*) 0.9% 50 ML BAG 50 ML ONE
--- NOTE | 2019-05-02 16:41 | RADIOLOGY IMAGING REPORT ---
[place] [facility] [place] Angelo : 1940 MR: [id number] V: [id number] EXAM DATE: ORDERING PHYSICIAN: [facility] TECHNOLOGIST: Location: [facility] [place] Patient: Anne Angelo : 1940 Visit/Account:[id number] Date of Sevice: 05/02/2019 ARTERIAL BILAT LOWER EXT EXAMINATION: Noninvasive vascular imaging of the right and left lower extremities. Technique: There has been calculation of the ankle-brachial indices using brachial artery systolic bl ood pressure and ankle systolic blood pressure. There has also been ultrasound grayscale imaging wit h Doppler waveform analysis and color flow evaluation of the arteries of the right and left leg HISTORY: Right groin pain COMPARISON: Outside ultrasound report [id number] Findings: Right side: Right RANDY: Not provided Right TBI: Not provided Grayscale imaging findings: Atherosclerotic changes noted Right CONSTRUCTION ENGINEERING MANAGER: 147 cm/s, biphasic waveform. Right SFA: 125 cm/s, biphasic waveform. Right popliteal: 88.6 cm/s biphasic waveform. Right posterior tibial: 67.4 cm/s, biphasic waveform Right dorsalis pedis: 101 cm/s, biphasic waveform Left side: Left RANDY: Not assessed Left TBI: Not assessed Grayscale imaging findings: Atherosclerotic changes CONSTRUCTION ENGINEERING MANAGER: 138 cm/s, biphasic waveform SFA: 125 cm/s, biphasic waveform Popliteal artery: 65 cm/s, biphasic waveform Posterior tibial artery: 81.6 cm/s, biphasic waveform Dorsalis pedis artery: No flow identified IMPRESSION: 1. Biphasic waveforms throughout the right and left lower extremities consistent with moderate ather osclerotic disease. Correlate with RANDY and claudication. 2. Nonvisualization of the left dorsalis pedis artery consistent with occlusion or high-grade stenos is Report Dictated By: Vitaliy Choe DO at 05/02/2019 4:27 PM Report E-Signed By: Vitaliy Choe DO at 05/02/2019 4:35 PM WSN:[email or web address]
== END ==
LOC: US 00:11
PROVIDERS: ATTEND Surgery Vascular Surgery
DX: I70.203 Unspecified atherosclerosis of native arteries of extremities, bilateral legs (principal)
CPT/HCPCS: 93925

== ENCOUNTER → 2019-05-08 | Outpatient (CLI) | payer MEDICARE ==
[~2019-05-08] MED LIST changes: -IOPAMIDOL 76% 100 ML INFUS BTL 100 ML ONE; -NS(*) 0.9% 50 ML BAG 50 ML ONE
== END ==
LOC: LAB 10:07
PROVIDERS: ATTEND Internal Medicine Cardiovascular Disease
DX: I70.219 Atherosclerosis of native arteries of extremities with intermittent claudication, unspecified extremity (principal); I71.4 Abdominal aortic aneurysm, without rupture
CPT/HCPCS: 36415; 82565; J7050; Q9967

== ENCOUNTER → 2019-05-18 | Outpatient (CLI) | payer MEDICARE | LOC: LAB 11:13 | PROVIDERS: ATTEND Internal Medicine Cardiovascular Disease | DX: I70.219 Atherosclerosis of native arteries of extremities with intermittent claudication, unspecified extremity (principal); I71.4 Abdominal aortic aneurysm, without rupture | CPT/HCPCS: 36415; 82565 ==

== ENCOUNTER → 2019-05-18 | Outpatient (CLI) | payer MEDICARE ==
[~2019-05-18] MED LIST changes: +DENOSUMAB 60 MG/1 ML SYR SUBQ ONE
[2019-05-18 13:10] VITALS: BP 134/77
== END ==
LOC: SPU 09:55
PROVIDERS: ATTEND Nurse Practitioner Family
DX: M81.0 Age-related osteoporosis without current pathological fracture (principal)
CPT/HCPCS: 96372; J0897